=== PATIENT | female | born 1955 | race Caucasian/White ===

== ENCOUNTER → 2017-06-05 | Outpatient (CLI) | payer BC | END | disposition home or self-care (01) | LOC: MAMMO 13:53 | DX: Z12.31 Encounter for screening mammogram for malignant neoplasm of breast (principal) ==

== ENCOUNTER → 2017-06-20 | Outpatient (CLI) | payer BC ==
--- NOTE | 2017-06-20 16:15 | MAM ---
EXAM DESCRIPTION: 3D Diagnostic, Right: Digital Mammography CLINICAL HISTORY: 62 yearsFemaleABNORMAL MAMMO RIGHT BREAST . Focal asymmetry lower outer quadrant anterior right breast on screening.. COMPARISON: 3-D tomosynthesis screening study 06/05/2017.. Targeted right breast ultrasound following this examination. Reports from prior examinations also reviewed. TECHNIQUE: Bilateral LM projection full-field images, 3-D tomosynthesis digital mammographic technique. Also bilateral synthesized LM full-field images. CAD not utilized. FINDINGS: The breast parenchymal density pattern is: Heterogeneously dense breast tissue, which may obscure small masses. No skin thickening or nipple retraction no focal asymmetry is visualized on the LM tomosynthesis views. Calcifications are again noted, inferior and slightly medial to the nipple. ULTRASOUND: Scanning of the right breast at the 600 clock position 3 cm from the nipple to the 800 clock position. Heterogeneous fibroglandular and fatty tissues, mostly fatty. At the 600 clock position, there is a well-defined hypoechoic object with central echogenicity but no significant vascularity. Mixed posterior acoustic shadowing and enhancement. Parallel orientation. Dimensions 7.7 x 7.3 mm. No discrete solid mass or cyst. No skin changes. No parenchymal edema or large calcifications. IMPRESSION: BI-RADS CATEGORY: 2 - BENIGN FINDINGS. FOLLOW UP: Return to routine digital bilateral screening, one year interval from May 2017. The FINDINGS and the follow-up plan were reviewed in person with the patient after the examination. Written communication explaining the IMPRESSION and follow-up will be mailed to the patient and referring care provider. According to the [employer], yearly mammograms are recommended starting at age 40 and continuing as long as a woman is in good health. Any breast change noted on a breast self-exam should be reported promptly to the patient's healthcare provider. Breast MRI is recommended for women with an approximately 20-25% or greater lifetime risk of breast cancer, including women with a strong family history of breast or ovarian cancer and women who have been treated for Hodgkin's disease. A negative mammographic report should not delay tissue diagnosis in patients with significant clinical history or physical findings. Extremely dense breast tissue limits the sensitivity of digital mammography. Electronically signed by: Naga Thompson MD 06/20/2017 4:14 PM HEARING EXAMINER
--- NOTE | 2017-06-20 16:16 | US ---
EXAM DESCRIPTION: Breast,Right: Ultrasound CLINICAL HISTORY: 62 yearsFemaleABNORMAL MAMMO COMPARISON: Digital 3-D tomosynthesis diagnostic mammography right breast on this visit. TECHNIQUE: Transcutaneous scanning of the right breast utilizing two-dimensional and Doppler modes. Scanning performed by the camp nurse and Dr. Thompson. FINDINGS: Scanning of the right breast at the 600 clock position 3 cm from the nipple to the 800 clock position. Heterogeneous fibroglandular and fatty tissues, mostly fatty. At the 600 clock position, there is a well-defined hypoechoic object with central echogenicity but no significant vascularity. Mixed posterior acoustic shadowing and enhancement. Parallel orientation. Dimensions 7.7 x 7.3 mm. No discrete solid mass or cyst. No skin changes. No parenchymal edema or large calcifications. IMPRESSION: 1. Bi-Rads Category 2: Benign. 2. Please refer to right breast 3-D tomosynthesis diagnostic mammographic examination and report on this visit. The FINDINGS and the follow-up plan were reviewed in person with the patient after the examination. Written communication explaining the IMPRESSION and follow-up will be mailed to the patient and referring care provider. Electronically signed by: Naga Thompson MD 06/20/2017 4:15 PM MENTAL HEALTH SOCIAL WORKER
== END ==
LOC: MAMMO 11:03
DX: R92.8 Other abnormal and inconclusive findings on diagnostic imaging of breast (principal)
CPT/HCPCS: 76641; 77065; G0279

== ENCOUNTER → 2019-06-27 | Outpatient (CLI) | payer MEDICARE, OTHER ==
--- NOTE | 2019-06-30 16:25 | MAM ---
EXAM DESCRIPTION: 3D Screening BILATERAL : Digital Mammography. CLINICAL HISTORY: 64 years Female SCREEN . No complaints. No personal history of breast cancer. Personal history of ovarian cancer. Remote family history of breast cancer. Menarche age 13. No childbirth. Menopause age 45. No HRT. Lifetime risk of developing breast cancer (Tyrer-Cuzick model)(%): 6.3. COMPARISON: Bilateral screening digital breast tomosynthesis May 2017. Right breast diagnostic tomosynthesis and directed ultrasound May 2017. TECHNIQUE: Bilateral CC and MLO projection full-field images, digital tomosynthesis mammographic technique. Bilateral digital 2-D full-field MLO images. CAD available for 2-D images. FINDINGS: The breast parenchymal density pattern is: Heterogeneously dense breast tissue, which may obscure small masses. No skin thickening or nipple retraction. Left axillary nodes. Bilateral solitary microcalcifications. Coarse calcification anterior right breast. No new focal, stellate mass or density, focal asymmetry , and no suspicious microcalcifications bilaterally. Stable mammograms compared to prior study. Taking into account, differences in mammographic technique. IMPRESSION: Benign exam. BIRAD CATEGORY: 2 BENIGN FINDINGS. RECOMMENDATIONS: FOLLOW UP: Routine digital bilateral mammographic screening, one year interval from May 2019. Written communication explaining the IMPRESSION and follow-up, will be mailed to the patient and referring health care provider. According to the [employer], yearly mammograms are recommended starting at age 40 and continuing as long as a woman is in good health. Any breast change noted on a breast self-exam should be reported promptly to the patient's healthcare provider. Breast MRI is recommended for women with an approximately 20-25% or greater lifetime risk of breast cancer, including women with a strong family history of breast or ovarian cancer and women who have been treated for Hodgkin's disease. A negative mammographic report should not delay tissue diagnosis in patients with significant clinical history or physical findings. Extremely dense breast tissue limits the sensitivity of digital mammography. Electronically signed by: Naga Thompson MD 06/30/2019 4:24 PM ROLLOUT MANAGER
== END ==
LOC: MAMMO 13:25
PROVIDERS: ATTEND Internal Medicine
DX: Z12.31 Encounter for screening mammogram for malignant neoplasm of breast (principal)